=== PATIENT | female | born 1995 ===

== ENCOUNTER 2024-08-01 06:14 | Outpatient (REF) | payer OTHER, SELFPAY | END 2024-08-01 06:15 | disposition home or self-care (01) | LOC: HO.UMASIMG 06:14 | PROVIDERS: Visit Provider Nurse Practitioner Women's Health | DX: Z13.89 Encounter for screening for other disorder (principal) ==

== ENCOUNTER 2024-08-20 08:31 | Outpatient (REF) | payer OTHER, SELFPAY ==
--- NOTE | ~2024-08-20 | US_ITS ---
EXAMINATION: US PELVIS CLINICAL INFORMATION: Irregular menses. COMPARISON: None available. TECHNIQUE: Ultrasound of the pelvis is performed using both transabdominal and transvaginal transducers along with Doppler. Transvaginal imaging is performed due to inadequate visualization transabdominally. FINDINGS: Uterus: The uterus is anteverted, anteflexed, and measures 6.9 x 3.1 x 3.7 cm. Normal-appearing cervix. The double wall endometrial thickness is 11 mm. It is uniform without irregularity. The uterus is smooth in contour and has normal myometrial echogenicity. No visible fibroid. Adnexa: Both ovaries are visualized. There is normal color flow to the adnexa. There is no ovarian torsion. There is trace anechoic free fluid in the cul-de-sac, presumably physiologic. There are no adnexal masses. Right ovary measures 3.3 x 2.9 x 2.0 cm. Volume = 10.1 mL. Normal sonographic appearance. Left ovary measures 3.0 x 2.2 x 1.9 cm. Volume = 6.4 mL. Normal sonographic appearance. US/US pelvic and transvaginal IMPRESSION: Normal pelvic ultrasound. Electronically signed by: Suresh Simmons MD 08/20/2024 09:50 AM EST
== END 2024-08-20 08:32 | disposition home or self-care (01) ==
LOC: HO.UMASIMG 08:31
PROVIDERS: Visit Provider Nurse Practitioner Women's Health
DX: N92.6 Irregular menstruation, unspecified (principal)
CPT/HCPCS: 76830; 76856

== ENCOUNTER → 2024-08-20 09:00 | Outpatient (BNV) | payer OTHER, SELFPAY | PROVIDERS: Visit Provider Radiology Diagnostic Radiology | DX: N92.6 Irregular menstruation, unspecified (principal) | CPT/HCPCS: 76830; 76856 ==